=== PATIENT | female | born 1935 | race American Indian/Alaskan Native ===

== ENCOUNTER 2016-10-24 12:48 | Outpatient (CLI) | payer MEDICARE ==
--- NOTE | 2016-10-26 09:51 | Ultrasound Report ---
Thyroid ultrasound: The right thyroid lobe measures 2.4 x 2.5 x 5.6 cm and the left thyroid lobe measures 2.2 x 2.3 x 5.6 cm. The isthmus has a thickness of 11 mm. The thyroid gland is diffusely inhomogeneous. In the inferior left lobe there is a dominant 2.1 cm circumscribed hyperdense mass. Superior to this there is a circumscribed hyperdense mass measuring 8 mm. Inferiorly it has a relatively isoechoic mass measuring 13 mm. In the mid right lobe there is a somewhat inhomogeneous and somewhat less well-circumscribed mass measuring 12 mm with an adjacent to hypo-echogenic mass but more circumscribed measuring 9 mm. Is a third inhomogeneous and somewhat hyperdense mass measuring 18 mm. There is an isoechoic mass measuring 13 mm in the isthmus. Comparison to the patient's prior exam in 2016 is technically difficult since the exams are not completely comparable. The dominant masses in each lobe appear generally stable. A couple of the smaller masses currently noted in the left lobe are not as clearly defined on prior study. Impressions: There is no substantial change compared to prior exam. The findings are consistent with goiter. No suspicious mass is appreciated at this time.
== END 2016-10-24 12:49 | disposition home or self-care (01) ==
LOC: US 12:48
PROVIDERS: ATTEND Specialist
DX: E04.9 Nontoxic goiter, unspecified (principal)
CPT/HCPCS: 76536

== ENCOUNTER 2021-07-22 20:06 | Emergency (ER) | payer MEDICARE ==
--- NOTE | 2021-07-23 03:53 | Emergency Department Report ---
ED Headache HPI - General Chief Complaint: Headache Stated Complaint: HEAD PAIN Time Seen by Provider: 07/23/21 03:24 - History of Present Illness Initial Comments: 85-year-old [place] female with a known history of migraine headaches presents emerged department complaining migraine headache for [place] S couple months that has been less responsive to her usual migraine medication she is due to follow- up primary care provider but seeks to have a another prescription written for some alternative migraine treatment medicines. She reports no trouble with speech, gait, strength, vision, balance or memory. Reports no chest pain, palpitations, no fever, chills, sweats. No hemoptysis hematemesis hematochezia, no shortness of breath Head Injury Location: temporal, parietal Recent Head Trauma: frequent headaches Associated Symptoms: denies: nausea/vomiting, nasal congestion, seizures, sinus infection, stiff neck, vision changes Allergies/Adverse Reactions: Allergies chocolate flavor Allergy (Unverified 03/05/16 13:52) Headache Penicillins Allergy (Unverified 09/30/13 11:24) Swelling Home Medications: Ambulatory Orders Multivitamin [One Daily Multivitamin] 1 each PO QDAY 12/31/18 Aspirin [Aspirin BABY CHEW TAB] 81 mg PO QDAY #30 tab.chew 01/02/19 Ibuprofen [Motrin 600 MG tab] 600 mg PO Q6H PRN tablet 01/02/19 Rosuvastatin Calcium [Crestor] 20 mg PO QHS #30 tablet 01/02/19 Telmisartan 40 mg PO QDAY #30 tablet 01/02/19 Butalb/Acetamin/Caff 50-325-40 [Fioricet 50-325-40] 1 tab PO Q8HR PRN #10 tablet 07/23/21 ED Review of Systems ROS: Stated complaint: HEAD PAIN Other details as noted in HPI Comment: All other systems reviewed and negative ED Past Medical Hx - Past Medical History Hx Hypertension: Yes - Social History Smoking Status: Never Smoker - Medications Home Medications: Home Medications Medication Instructions Recorded Confirmed Last Taken Type Multivitamin [One Daily 1 each PO QDAY 12/31/18 12/31/18 12/31/18 History Multivitamin] Aspirin [Aspirin BABY CHEW TAB] 81 mg PO QDAY #30 tab.chew 01/02/19 Unknown Rx Ibuprofen [Motrin 600 MG tab] 600 mg PO Q6H PRN tablet 01/02/19 Unknown Rx Rosuvastatin Calcium [Crestor] 20 mg PO QHS #30 tablet 01/02/19 Unknown Rx Telmisartan 40 mg PO QDAY #30 tablet 01/02/19 Unknown Rx Butalb/Acetamin/Caff 50-325-40 1 tab PO Q8HR PRN #10 tablet 07/23/21 Unknown Rx [Fioricet 50-325-40] ED Physical Exam - General Limitations: No Limitations General appearance: alert, in no apparent distress - Head Head exam: Present: atraumatic, normocephalic - Eye Eye exam: Present: normal appearance, PERRL, EOMI Pupils: Present: normal accommodation - ENT ENT exam: Present: normal exam, normal orophraynx, mucous membranes moist, TM's normal bilaterally - Neck Neck exam: Present: normal inspection, full ROM - Respiratory Respiratory exam: Present: normal lung sounds bilaterally. Absent: respiratory distress, wheezes, rales, rhonchi, accessory muscle use - Cardiovascular Cardiovascular Exam: Present: regular rate, normal rhythm. Absent: systolic murmur, diastolic murmur, rubs, gallop - GI/Abdominal GI/Abdominal exam: Present: soft, normal bowel sounds - Extremities Exam Extremities exam: Present: normal inspection, normal capillary refill - Back Exam Back exam: Present: normal inspection. Absent: CVA tenderness (R), CVA tenderness (L) - Neurological Exam Neurological exam: Present: alert, oriented X3, CN II-XII intact, normal gait - Psychiatric Psychiatric exam: Present: normal affect, normal mood - Skin Skin exam: Present: warm, dry, intact, normal color. Absent: rash ED Course Vital Signs 07/22/21 07/23/21 20:33 04:11 Temperature 98.9 F Pulse Rate 93 H 90 Respiratory 18 12 Rate Blood Pressure 183/78 Blood Pressure 177/72 [Right] O2 Sat by Pulse 99 100 Oximetry ED Medical Decision Making - Medical Decision Making This patient presents with a headache most consistent with headache. Differential diagnosis includes migraine versus tension type headache. No headache red flags. Neurologic exam without evidence of meningismus, focal neurologic findings.Based on the patient's history and physical there is very low clinical suspicion for significant intracranial pathology. The headache was NOT sudden onset, NOT maximal at onset, there are NO neurologic findings, the patient does NOT have a fever, the patient does NOT have any jaw claudication, the patient does NOT endorse a clotting disorder, patient DENIES any trauma or eye pain and the headache is NOT associated with dizziness or ataxia. Presentation not consistent with acute intracranial bleed to include SAH (lack of risk factors, headache history). Presentation not consistent with acute [employer] infection to include meningitis or brain abscess, Temporal arteritis unlikely, as is acute angle closure glaucoma given history and physical findings. Presentation not consistent with other acute, emergent causes of headache at this time. Plan to treat symptomatically with pain medication. No indication for imaging/LP at this time. Critical care attestation.: If time is entered above; I have spent that time in minutes in the direct care of this critically ill patient, excluding procedure time. ED Disposition Clinical Impression: Cephalgia Disposition: 01 HOME / SELF CARE / HOMELESS Is pt being admited?: No Does the pt Need Aspirin: No Condition: Stable Additional Instructions: You have been evaluated in the emergency department today for headache. Your evaluation did not show evidence of medical conditions requiring emergent intervention at this time, and your pain improved with medication. We recommend that you take Motrin and Tylenol as needed for your pain. If needed you can alternate these medications so that you take 1 every 3 hours. To be sure to follow-up with your primary care provider within 2 days for Return to emergency department if you experience worsening uncontrolled pain, vision changes, recurrent vomiting, difficulty with normal activities, abnormal behavior, difficulty walking, numbness, weakness, or any other concerning symptoms. Prescriptions: Butalb/Acetamin/Caff 50-325-40 [Fioricet 50-325-40] 1 tab PO Q8HR PRN #10 tablet PRN Reason: Headache Referrals: YANICK MONTE MD [Primary Care Provider] - 3-5 Days
[2021-07-23 04:11] VITALS: BP 177/72
== END 2021-07-23 04:11 | disposition home or self-care (01) ==
LOC: ED 20:06
DX: R51.9 Headache, unspecified (principal); I10 Essential (primary) hypertension
CPT/HCPCS: 99282